=== PATIENT | female | born 1965 ===

== ENCOUNTER → 2017-05-23 12:31 | Day surgery (SDC) | payer SELFPAY ==
[2017-05-23 11:43] VITALS: BP 108/59; PULSE 101; RESP 17; TEMP 98.5; O2SAT 98
[~2017-05-23 12:31] MED LIST: Lactated Ringer's 500 ML IV ONE; Midazolam 2 MG/2 ML VIAL ONE; Propofol 10 mg/ml Inj (20 ML) ONE
== END | disposition home or self-care (01) ==
LOC: H.ENDO 08:44 → EDSTATUS 13:00
PROVIDERS: ATTEND Internal Medicine Gastroenterology
DX: Z12.11 Encounter for screening for malignant neoplasm of colon (principal); K21.9 Gastro-esophageal reflux disease without esophagitis; K64.8 Other hemorrhoids; K29.50 Unspecified chronic gastritis without bleeding; K30 Functional dyspepsia; K31.9 Disease of stomach and duodenum, unspecified
CPT/HCPCS: 43239; 45378; 88305; J2250; J2704; J7120